=== PATIENT | male | born 1990 | race Caucasian/White ===

== ENCOUNTER → 2018-11-23 09:52 | Outpatient (CLI) | payer OTHER, SELFPAY ==
--- NOTE | 2018-11-23 10:15 | RAD_ITS ---
HISTORY: HX OF PATELLA FX SEVERAL YEARS AGO COMPARISON: None FINDINGS: XR left Knee Complete 4 Views No dislocation or acute fracture. Normal bony alignment. Joint spaces appear preserved. Chronic appearing 6 mm corticated bony density at the posterior, inferior margin of the patella in keeping with old ununited chip fracture or loose body. No joint effusion. A fabella is present. RAD/Knee 4 or More Views IMPRESSION: 1. 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 2. Otherwise negative exam. No posttraumatic arthritis seen. at 0650 Reported and signed by: Tab Cuellar MD Electronically Signed: Tab Cuellar, at 6:49 EST Tel , Service support ,
== END ==
PROVIDERS: Referring Provider Orthopaedic Surgery; Visit Provider Orthopaedic Surgery
DX: S82.002A Unspecified fracture of left patella, initial encounter for closed fracture (principal); S83.412A Sprain of medial collateral ligament of left knee, initial encounter
CPT/HCPCS: 73564